=== PATIENT | male | born 1980 | race Hispanic/Latino ===

== ENCOUNTER 2019-06-06 12:09 | Emergency (ER) | payer OTHER ==
[2019-06-06] MEDS ORDERED: KETOROLAC TROMETHAMINE 60 MG/2 ML VIAL ONE (12:39)
== END 2019-06-06 14:03 | disposition home or self-care (01) ==
LOC: EDH 12:09
DX: M10.9 Gout, unspecified (principal); Z90.49 Acquired absence of other specified parts of digestive tract; Z72.0 Tobacco use
CPT/HCPCS: 96372 ×2; 99284; J1030; J1885